=== PATIENT | male | born 1975 | race Caucasian/White ===

== ENCOUNTER 2018-11-12 10:50 | Emergency (ER) | payer MEDICAID ==
[~2018-11-12] VITALS: Ht 175.3 cm; Wt 72.0 kg
[2018-11-12] MEDS ORDERED: ONDANSETRON HCL 4MG/2ML INJ IV STA (11:03)
[2018-11-12] MEDS ORDERED: KETOROLAC 30MG/ML VIAL IV STA (11:03)
[2018-11-12] MEDS ORDERED: MORPHINE SULFATE 4 MG/ML CPJ (NOT FOR IM USE) IV STA (11:03)
[2018-11-12] MEDS ORDERED: SODIUM CHLORIDE 0.9% 1,000 ML IV ONE (11:03)
[2018-11-12] MEDS ORDERED: DEXAMETHASONE 10 MG/ML VIAL IV ONE (11:15)
[2018-11-12] MEDS ORDERED: DIAZEPAM 5 MG TABLET PO ONE (14:45)
[2018-11-12 15:45] VITALS: BP 124/97
== END 2018-11-12 17:35 | disposition home or self-care (01) ==
LOC: ER 11:27
DX: M54.40 Lumbago with sciatica, unspecified side (principal)
CPT/HCPCS: 72148; 96374; 96375; 99284; J1100; J1885; J2270; J2405; J7030; Z7610